=== PATIENT | female | born 1935 | race Native Hawaiian/Other Pacific Islander ===

== ENCOUNTER 2017-11-11 14:09 | Emergency (ER) | payer MEDICARE, OTHER ==
[2017-11-11 14:18] VITALS: TEMP 97.7; BMI 28.3
[2017-11-11] MEDS ORDERED: Promethazine/Cod 6.25mg-10mg/5ml Syr UD PO STA (15:10)
--- NOTE | 2017-11-11 16:22 | ED PDOC ---
Arrival/HPI - General Chief Complaint: Dizziness/Lightheaded Time Seen by Provider: 11/11/17 14:30 Historian: Patient - History of Present Illness Narrative History of Present Illness (Text): 11/11/17 16:18 82yo female with PMHx of hypertension, COPD and hypercholestrolemia who present with complaint of cough x one month and dizziness last night. Notes that she saw her PMD for the cough and was treated for pneumonia last month. States she however continued to have persistent cough, usually worse at night. States she was seen by her PMD last week and all test was negative. She described dizziness as lightheadedness. States she is unable to sleep secondary to the cough and is making her tired and she thinks it caused her lightheadedness. She notes that she is currently visiting family and she saw her PMD in [place] . Notes that she is on her way to [facility] and ran out of cough medication, so she came to the ED for cough medication. She denies chest pain, SOB, diaphoresis, fever, chills, LE edema, calf pain, nausea, vomiting, abdominal pain, any other complaint. Past Medical History - Provider Review Nursing Documentation Reviewed: Yes - Cardiac Hx Cardiac Disorders: Yes Hx Hypertension: Yes - Pulmonary Hx Respiratory Disorders: Yes Hx Asthma: Yes Hx Pneumonia: Yes - Neurological Hx Neurological Disorder: No - HEENT Hx HEENT Disorder: No - Endocrine/Metabolic Hx Endocrine Disorders: Yes Hx Diabetes Mellitus Type 2: Yes - Hematological/Oncological Hx Blood Disorders: No - Integumentary Hx Dermatological Disorder: No - Musculoskeletal/Rheumatological Hx Musculoskeletal Disorders: No - Gastrointestinal Hx Gastrointestinal Disorders: No - Genitourinary/Gynecological Hx Genitourinary Disorders: No - Psychiatric Hx Psychophysiologic Disorder: No Hx Substance Use: No Family/Social History - Physician Review Nursing Documentation Reviewed: Yes Family/Social History: Unknown Family HX Smoking Status: Never Smoked Hx Alcohol Use: No Hx Substance Use: No Allergies/Home Meds Allergies/Adverse Reactions: Allergies No Known Allergies Allergy (Verified 11/11/17 14:18) Review of Systems - Physician Review All systems were reviewed & negative as marked: Yes - Review of Systems Constitutional: Normal Eyes: Normal ENT: Normal Respiratory: Cough. absent: SOB, Sputum, Wheezing Cardiovascular: Normal Gastrointestinal: Normal Genitourinary Female: Normal Musculoskeletal: Normal Skin: Normal Neurological: Dizziness. absent: Headache, Focal Weakness, Gait Changes, Speech Changes, Facial Droop Endocrine: Normal Hemo/Lymphatic: Normal Psychiatric: Normal Physical Exam Vital Signs Reviewed: Yes Vital Signs Temp Pulse Resp BP Pulse Ox 11/11/17 15:59 68 18 145/74 100 11/11/17 14:13 97.7 F 72 18 148/81 100 Temperature: Afebrile Blood Pressure: Normal Pulse: Regular Respiratory Rate: Normal Appearance: Positive for: Well-Appearing, Non-Toxic, Comfortable Pain Distress: None Mental Status: Positive for: Alert and Oriented X 3 - Systems Exam Head: Present: Atraumatic, Normocephalic Pupils: Present: PERRL Extroacular Muscles: Present: EOMI Conjunctiva: Present: Normal Mouth: Present: Moist Mucous Membranes Neck: Present: Normal Range of Motion Respiratory/Chest: Present: Clear to Auscultation, Good Air Exchange, Wheezes ( Mild expiratory wheeze - Patient states is chronic for her). No: Respiratory Distress, Accessory Muscle Use, Decreased Breath Sounds, Rales, Retracting, Rhonchi, Tachypneic Cardiovascular: Present: Regular Rate and Rhythm, Normal S1, S2. No: Murmurs Abdomen: Present: Normal Bowel Sounds. No: Tenderness, Distention, Peritoneal Signs Back: Present: Normal Inspection Upper Extremity: Present: Normal Inspection. No: Cyanosis, Edema Lower Extremity: Present: Normal Inspection. No: Edema Neurological: Present: GCS=15, CN II-XII Intact, Speech Normal Skin: Present: Warm, Dry, Normal Color. No: Rashes Psychiatric: Present: Alert, Oriented x 3, Normal Insight, Normal Concentration Medical Decision Making ED Course and Treatment: 11/11/17 16:34 PT was not hypoxic, not lethargic in ED. she denies fever, chills, chest pain. She declined blood work in ED. States she have had multiple blood work and chest xray since this cough started. Notes that the last one was last week. States she only came to the ED for cough medication because she ran out. I explained the risk of cardiogenic or neurological cause of her dizziness. she expressed understanding of these risk and still insist on signing out AMA. she was talking in full sentence and ambulatory without any distress. Advised to return to ED if she changes her mind. - Lab Interpretations Lab Results: Lab Results 11/11/17 15:15: Influenza Typ A,B (EIA) Negative for flu a/b - Medication Orders Current Medication Orders: Discontinued Medications Promethazine HCl/Codeine (Phenergan/Codeine Oral Syrup) 5 ml PO STAT STA Stop: 11/11/17 15:11 Last Admin: 11/11/17 15:26 Dose: 5 ml Disposition/Present on Arrival - Present on Arrival Any Indicators Present on Arrival: No History of DVT/PE: No History of Uncontrolled Diabetes: No Urinary Catheter: No History of Decub. Ulcer: No History Surgical Site Infection Following: None - Disposition Have Diagnosis and Disposition been Completed?: Yes Diagnosis: Dizziness, Cough Disposition: AGAINST MEDICAL ADVICE Disposition Time: 16:40 Condition: FAIR Prescriptions: Promethazine HCl/Codeine [Prometh-Codein 6.25-10 mg/5 ml] 5 ml PO Q6 #100 syrup Referrals: Arina Bo, [Primary Care Provider] - Follow up with primary Forms: [place] ([employer])
[2017-11-11 16:55] VITALS: BP 144/78; PULSE 70; RESP 17; O2SAT 99
--- NOTE | 2017-11-12 08:38 | CARD ---
APPROVED REPORT EKG Measurement Heart [id number] <Conclusion> Sinus rhythm with occasional and consecutive premature ventricular complexes
== END 2017-11-11 16:55 | disposition left against medical advice (07) ==
LOC: ED 14:09
DX: R05 Cough (principal); R42 Dizziness and giddiness; E11.9 Type 2 diabetes mellitus without complications; I10 Essential (primary) hypertension; J44.9 Chronic obstructive pulmonary disease, unspecified